=== PATIENT | male | born 1950 | race Caucasian/White ===

== ENCOUNTER 2017-03-02 10:05 | Outpatient (CLI) | payer BC | END 2017-03-02 10:06 | disposition home or self-care (01) | LOC: BICRAD 10:05 | PROVIDERS: ATTEND Family Medicine | DX: J18.9 Pneumonia, unspecified organism (principal) | CPT/HCPCS: 71020 ==

== ENCOUNTER 2019-02-10 21:07 | Emergency (ER) | payer BC ==
[2019-02-10 21:43] LABS: #Eosinphils 0.2 thou/uL (0.0-0.7); #Lymphocytes 1.6 thou/uL (1.20-3.40); #Monocytes 0.5 thou/uL (0.11-0.59); #Neutrophils 2.3 thou/uL (1.40-6.50); %Eosinophils 3.5 % (0.0-10.0); %Lymphocytes 34.4 % (21.0-51.0); %Neutrophils 50.1 % (42.0-75.0); Hemoglobin 13.3 g/dL (14.0-18.0); Mean Corpuscular HGB CONC 34.6 g/dL (32.0-36.0); Mean Corpuscular Hemoglobin 32.8 pg (27.0-31.0); Mean Platelet Volume 6.9 fL (7.4-10.4); Platelet Count 238 thou/uL (130-400); RBC Distribution Width 11.7 % (11.5-14.5); Red Blood Cell (RBC) Count 4.06 mill/uL (4.70-6.10); White Blood Cell (WBC) Count 4.5 thou/uL (4.8-10.8)
[2019-02-10 22:06] LABS: ALT (SGPT) 23 U/L (8-55); AST (SGOT) 23 U/L (5-34); Albumin 4.3 g/dL (3.4-4.8); Alkaline Phosphatase 84 U/L (40-110); Anion Gap 11 mmol/L (10-20); BUN (Urea Nitrogen) 14 mg/dL (8.4-25.7); Bilirubin, Total 0.2 mg/dL (0.2-1.2); Calc. Creatinine Clearance 0 mL/min (70-130); Calcium 9.1 mg/dL (7.8-10.44); Carbon Dioxide 28 mmol/L (23-31); Chloride 106 mmol/L (98-107); Estimated GFR-MDRD 87; Globulin 3.1 g/dL (2.4-3.5); Glucose 98 mg/dL (80-115); Lipase 35 U/L (8-78); Potassium 4.2 mmol/L (3.5-5.1); Protein, Total 7.4 g/dL (5.8-8.1); Sodium 141 mmol/L (136-145)
--- NOTE | 2019-02-10 23:17 | RAD ---
RADIOGRAPH CHEST 1 VIEW: DATE: 02/10/2019 HISTORY: 68-year-old male with acute chest pain and hypertension. FINDINGS: The thoracic aorta is tortuous and ectatic. There is no evidence of airspace density, cardiomegaly, p ulmonary edema, or pneumothorax. The lateral costophrenic angles are not effaced. IMPRESSION: 1) No acute pulmonary findings. 2) ectasia of thoracic aorta.
--- NOTE | 2019-02-11 00:35 | CT ---
CT angiogram thorax with contrast CT angiogram abdomen with contrast: HISTORY: 68-year-old male with acute chest pain TECHNIQUE: IV injection of iodinated contrast. Arterial bolus chasing technique. Scan acquisition from top of aortic arch to iliac crests. 3-D MIP reconstructions. FINDINGS: No aortic dissection, aneurysm, or rupture. Ectasia and tortuosity of thoracic aorta. No consolidation, pulmonary edema, pneumothorax, or pleural effusion. Trachea and bilateral mainstem bronchi are patent and clear. No mediastinal or hilar lymphadenopathy. No pericardial effusion. No hydronephrosis. Within the limitations of an arterial phase only scan, no major obvious pathology identified involvin g kidneys, adrenals, pancreas, liver, or spleen. No small bowel dilation. Normal appendix. No pneumoperitoneum identified. No gross acute pathology identified involving visualized portions of large intestine. Double left renal arteries. Single right renal artery. No stenosis of celiac artery or SMA. No acute compression fracture of thoracic spine or lumbar spine. Multilevel mild and moderate degener ative disc disease. Atherosclerotic calcification of LAD and RCA. IMPRESSION: 1) no aortic dissection, aneurysm, or rupture. 2. 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 3. Coronary atherosclerosis. 4. No acute findings.
[2019-02-11 01:28] LABS: Troponin I Less than 0.010 ng/mL (< 0.028)
== END 2019-02-11 01:52 | disposition home or self-care (01) ==
LOC: ERS 21:07
DX: I10 Essential (primary) hypertension (principal); E78.5 Hyperlipidemia, unspecified; I25.2 Old myocardial infarction; F32.9 Major depressive disorder, single episode, unspecified; Z79.899 Other long term (current) drug therapy; Z79.891 Long term (current) use of opiate analgesic; Z79.82 Long term (current) use of aspirin
CPT/HCPCS: 36415; 71045; 71275; 72191; 74175; 80053; 83690; 84484; 85025; 85379; 93005

== ENCOUNTER 2024-03-19 10:27 | Emergency (ER) | payer BC, MEDICARE ==
[2024-03-19] MEDS ORDERED: Zolpidem Tartrate 5 MG TAB ONE (11:25)
== END 2024-03-19 11:35 | disposition home or self-care (01) ==
LOC: ERS 10:27
DX: T43.225A Adverse effect of selective serotonin reuptake inhibitors, initial encounter (principal); T42.1X5A Adverse effect of iminostilbenes, initial encounter; G47.00 Insomnia, unspecified; I10 Essential (primary) hypertension; E78.5 Hyperlipidemia, unspecified; I25.2 Old myocardial infarction; Z79.82 Long term (current) use of aspirin; Z79.899 Other long term (current) drug therapy
CPT/HCPCS: 99283

== ENCOUNTER 2024-03-20 09:33 | Emergency (ER) | payer BC, MEDICARE ==
[2024-03-20] MEDS ORDERED: QUEtiapine 25 MG TAB ONE (10:26)
== END 2024-03-20 10:30 | disposition home or self-care (01) ==
LOC: ERS 09:33
DX: G47.00 Insomnia, unspecified (principal); I10 Essential (primary) hypertension; E78.5 Hyperlipidemia, unspecified; I25.2 Old myocardial infarction; Z79.82 Long term (current) use of aspirin; Z79.899 Other long term (current) drug therapy
CPT/HCPCS: 99283

== ENCOUNTER 2024-04-13 10:13 | Outpatient (CLI) | payer MEDICARE | END 2024-04-13 10:14 | disposition home or self-care (01) | LOC: BICMRI 10:13 | PROVIDERS: ATTEND Family Medicine Sports Medicine | DX: R41.82 Altered mental status, unspecified (principal); I67.82 Cerebral ischemia; R90.89 Other abnormal findings on diagnostic imaging of central nervous system; J34.89 Other specified disorders of nose and nasal sinuses | CPT/HCPCS: 70551 ==